=== PATIENT | male | born 1995 | race Hispanic/Latino ===

== ENCOUNTER 2019-09-07 08:00 | Emergency (ER) | payer SELFPAY ==
[2019-09-07 08:10] VITALS: BP 124/86
[2019-09-07] MEDS ORDERED: NACL 0.9% 1000 ML 1,000 ML IV ONE (08:34)
[2019-09-07] MEDS ORDERED: ATIVAN IV ONE (08:35)
--- NOTE | 2019-09-07 08:39 | Emergency Department Report ---
HPI - General Chief Complaint: Anxiety Time Seen by Provider: 09/07/19 08:19 - HPI HPI: Room 34 The patient is a 23-year-old male presenting with chief complaint of anxiety. The patient states is from his mother she has a separate penitentiary and he indicated the diagnoses of social anxiety. The patient reportedly had an episode of "lightheadedness" last night where he was talking in his sleep and was banging his hands on the bed. Patient states he awakened with a panic attack felt dizzy anterior chest pain headache patient denies shortness of breath or nausea/vomiting. Patient denies suicidal or homicidal ideation. Patient denies visual or auditory hallucinations. The patient states he was formerly on Xanax for his anxiety but has not had a prescription for 2 years. The patient states his mother occasionally gives him one of her Xanax and he was last administered one this morning. Patient denies obtaining benzodiazepines from the street or any other sources Location: [See above] Duration: [See above] Quality: [See above] Severity: [See above] Timing: [See above] Context: [See above] Modifying factors: [See above] Associated signs and symptoms: [see above] ED Past Medical Hx - Past Medical History Previous Medical History?: Yes Hx Hypertension: Yes Additional medical history: anxiety. ADD - Surgical History Past Surgical History?: No - Family History Family history: no significant - Social History Smoking Status: Current Every Day Smoker (1/2 pack per day) Substance Use Type: None (denies illicit drug use), Alcohol (rarely) - Medications Home Medications: Home Medications Medication Instructions Recorded Confirmed Last Taken Type hydrOXYzine PAMOATE [Vistaril] 50 mg PO Q6HR PRN #20 capsule 09/07/19 Unknown Rx ED Review of Systems ROS: Stated complaint: ANXIETY ATTACK,HYPERTENSIVE Other details as noted in HPI Constitutional: no symptoms reported Eyes: denies: eye pain ENT: denies: throat pain Respiratory: denies: shortness of breath Cardiovascular: chest pain Endocrine: no symptoms reported Gastrointestinal: denies: abdominal pain Genitourinary: denies: dysuria Musculoskeletal: denies: back pain Neurological: headache Physical Exam - Physical Exam Vital Signs: Vital Signs 09/07/19 09/07/19 08:09 08:12 Temperature 98.0 F 98 F Pulse Rate 119 H 119 H Respiratory 18 18 Rate Blood Pressure 124/86 Blood Pressure 124/86 [Right] O2 Sat by Pulse 98 98 Oximetry Physical Exam: GENERAL: The patient is well-developed well-nourished male lying on stretcher that appeared to be in acute distress. [] HEENT: Normocephalic. Atraumatic. Extraocular motions are intact. Patient has moist mucous membranes. NECK: Trachea midline CHEST/LUNGS: Clear to auscultation. There is no respiratory distress noted. HEART/CARDIOVASCULAR: Regular. There is no tachycardia. There is no gallop rub or murmur. ABDOMEN: Abdomen is soft, nontender. Patient has normal bowel sounds. There is no abdominal distention. SKIN: There is no rash. There is no edema. There is no diaphoresis. NEURO: The patient is awake, alert, and oriented. The patient is cooperative. The patient has no focal neurologic deficits. The patient has normal speech MUSCULOSKELETAL: There is no evidence of acute injury. ED Course Vital Signs 09/07/19 09/07/19 08:09 08:12 Temperature 98.0 F 98 F Pulse Rate 119 H 119 H Respiratory 18 18 Rate Blood Pressure 124/86 Blood Pressure 124/86 [Right] O2 Sat by Pulse 98 98 Oximetry ED Medical Decision Making - Lab Data Result diagrams: 09/07/19 09:05 09/07/19 Unknown Laboratory Tests 09/07/19 09/07/19 09/07/19 09:05 09:05 09:05 WBC 5.0 RBC 4.82 Hgb 15.2 Hct 44.9 MCV 93 MCH 32 MCHC 34 RDW 15.6 H Plt Count 219 Lymph % (Auto) 30.4 [place] % (Auto) 12.9 H Eos % (Auto) 1.4 Baso % (Auto) 1.6 Lymph # 1.5 [place] # 0.6 Eos # 0.1 Baso # 0.1 Seg Neutrophils % 53.7 Seg Neutrophils # 2.7 D-Dimer 225.57 Sodium Potassium Chloride Carbon Dioxide Anion Gap BUN Creatinine Estimated GFR BUN/Creatinine Ratio Glucose Calcium Total Creatine Kinase 160 CK-MB (CK-2) 1.0 CK-MB (CK-2) Rel Index 0.6 Troponin T < 0.010 NT-Pro-B Natriuret Pep < 5 TSH Free T4 09/07/19 09/07/19 09:05 Unknown WBC RBC Hgb Hct MCV MCH MCHC RDW Plt Count Lymph % (Auto) [place] % (Auto) Eos % (Auto) Baso % (Auto) Lymph # [place] # Eos # Baso # Seg Neutrophils % Seg Neutrophils # D-Dimer Sodium 140 Potassium 3.9 Chloride 100.6 Carbon Dioxide 22 Anion Gap 21 BUN 13 Creatinine 0.4 L Estimated GFR > 60 BUN/Creatinine Ratio 33 Glucose 95 Calcium 9.1 Total Creatine Kinase CK-MB (CK-2) CK-MB (CK-2) Rel Index Troponin T NT-Pro-B Natriuret Pep TSH 1.040 Free T4 2.17 H - EKG Data -: EKG Interpreted by Me EKG shows normal: sinus rhythm Rate: tachycardia (110 bpm) - EKG Data When compared to previous EKG there are: no significant change Interpretation: other (no ischemic changes seen) - Differential Diagnosis anxiety, PE, hyperthyroidism, dehydration Critical care attestation.: If time is entered above; I have spent that time in minutes in the direct care of this critically ill patient, excluding procedure time. ED Disposition Clinical Impression: Anxiety Disposition: DC-01 TO HOME OR SELFCARE Is pt being admited?: No Does the pt Need Aspirin: No Condition: Stable Instructions: Anxiety (ED) Additional Instructions: Return to the emergency department should you develop worsening symptoms, inability to tolerate food or liquids, high fever or any other concerns Prescriptions: hydrOXYzine PAMOATE [Vistaril] 50 mg PO Q6HR PRN #20 capsule PRN Reason: Anxiety Referrals: Ezio DeAlpesh [facility] [Outside] - 3-5 Days [facility] [Outside] - 3-5 Days Time of Disposition: 10:54
[2019-09-07 09:23] LABS: Basophils # (Auto) 0.1 K/mm3 (0.0-0.1); Basophils % (Auto) 1.6 % (0.0-1.8); Eosinophils # (Auto) 0.1 K/mm3 (0.0-0.4); Eosinophils % (Auto) 1.4 % (0.0-4.3); Hematocrit 44.9 % (35.5-45.6); Hemoglobin 15.2 gm/dl (11.8-15.2); Lymphocytes # (Auto) 1.5 K/mm3 (1.2-5.4); Lymphocytes % (Auto) 30.4 % (13.4-35.0); Mean Corpuscular HGB Conc 34 % (32-34); Mean Corpuscular Volume 93 fl (84-94); Monocytes # (Auto) 0.6 K/mm3 (0.0-0.8); Monocytes % (Auto) 12.9 % (0.0-7.3); Platelet Count 219 K/mm3 (140-440); Red Blood Count 4.82 M/mm3 (3.65-5.03); Red Cell Distribution Width 15.6 % (13.2-15.2)
[2019-09-07 10:15] LABS: Free T4 (Free Thyroxine) 2.17 ng/dL (0.76-1.46)
[2019-09-07] MEDS ORDERED: IBUPROFEN PO ONE (10:32)
[2019-09-07 10:47] LABS: BUN/Creatinine Ratio 33; Blood Urea Nitrogen 13 mg/dL (9-20); Calcium 9.1 mg/dL (8.4-10.2); Hemolysis Index 15
== END 2019-09-07 11:16 | disposition home or self-care (01) ==
LOC: ED 08:00
DX: F41.9 Anxiety disorder, unspecified (principal); I10 Essential (primary) hypertension; F17.200 Nicotine dependence, unspecified, uncomplicated; Z79.899 Other long term (current) drug therapy
CPT/HCPCS: 36415; 80048; 82550; 82553; 83880; 84439; 84443; 84484; 85025; 85379; 93005; 93010; 96374; 99284; J2060; J7030